=== PATIENT | female | born 1980 ===

== ENCOUNTER 2018-04-28 11:20 | Emergency (ER) | payer BC, OTHER ==
[2018-04-28] MEDS ORDERED: methylPREDNIS SUCC 125 MG/2ML IVP ONE (11:25)
[2018-04-28] MEDS ORDERED: FAMOTIDINE(*) 20MG/50ML PREMIX 50 ML IVPB ONE (11:25)
--- NOTE | 2018-04-28 11:25 | ER Report ---
History and Physical Time Seen By MD: 11:24 HPI/ROS CHIEF COMPLAINT: Drug reaction HISTORY OF PRESENT ILLNESS: Patient had an allergic reaction after eating sunflower seeds with her breakfast this morning. She states no prior allergy that she is aware of. She states she began feeling some swelling and itching to her eyes soon after eating breakfast but then soon after while exercising developed throat swelling difficulty breathing and wheezing. EMS was called she had taken a total of 75 mg of Benadryl orally prior to EMS arrival. She was given 0.3 mL of epinephrine's intramuscularly by EMS with rapid improvement in her symptoms. Patient had allergies to foods in the past but has not had a reaction in over 20 years. REVIEW OF SYSTEMS: Respiratory: Dyspnea Cardiovascular: No chest pain, no palpitations. Gastrointestinal: No vomiting, no abdominal pain. Musculoskeletal: No back pain. Allergies: Coded Allergies: codeine (Verified Allergy, Unknown, 04/28/18) Home Meds Active Scripts Epinephrine (EPINEPHRINE) 0.3 Mg/0.3 Ml Pen.injctr, 0.3 MG IM ONCE for severe allergic reaction, #1 PACK 1 Refill Prov:PEYMAN MCCLELLAN MD 04/28/18 Constitutional Vital Sign - Last 24 Hours 04/28/18 04/28/18 04/28/18 04/28/18 11:21 11:30 11:35 11:50 Temp 94.7 Pulse 92 85 83 Resp 22 37 24 B/P (MAP) 113/74 113/61 (78) Pulse Ox 100 84 97 O2 Delivery Room Air Intake and Output 04/28/18 04/28/18 04/29/18 15:00 23:00 07:00 Intake Total 50 ml Balance 50 ml Physical Exam General/Constitutional: Patient is awake, alert, nontoxic and in no acute respiratory distress. Head: Normocephalic and atraumatic Oropharyngeal: Mucous membranes are moist. There is no pharyngeal erythema or exudate. There are no palatal petechiae. Uvula is midline and symmetrical. Neck: Supple, no adenopathy. Cardiovascular: Heart is regular rate and rhythm without audible murmurs, rubs or gallops. Pulmonary: Lungs are clear to auscultation bilaterally. There are no wheezes, rales, or rhonchi. Chest rise is symmetrical Extremities: No gross deformities, No peripheral cyanosis. Able to move all 4 extremities. Neuro: Alert and oriented X3, Skin: No rashes, skin is warm dry and well perfused. Medical Decision Making ED Course/Re-evaluation ED Course 04/28/2018 11:45:55 am suspected allergic reaction to sunflower seeds. Patient took a total of 75 mg of oral Benadryl prehospital and received 0.3 mL's of 1- 1000 epinephrine intramuscularly by EMS with rapid improvement of her symptoms. Upon arrival to the emergency department respiratory symptoms have nearly abated. Plan at this time will be IV Pepcid along with IV Solu-Medrol and a period of observation in the emergency department. Re-evaluation 04/28/2018 12:16:57 pm patient remained symptom-free at this time will discharge home. Decision to Disposition Date: Apr 28, 2018 Decision to Disposition Time: 12:36 Depart Departure Latest Vital Signs Vital Signs Date Time Temp Pulse Resp B/P (MAP) Pulse Ox O2 Delivery O2 Flow Rate FiO2 04/28/18 11:50 83 24 97 04/28/18 11:30 113/61 (78) 04/28/18 11:21 94.7 Room Air Impression: Primary Impression: Allergic reaction Condition: Improved Disposition: HOME OR SELF-CARE New Scripts Epinephrine (EPINEPHRINE) 0.3 Mg/0.3 Ml Pen.injctr 0.3 MG IM ONCE for severe allergic reaction, #1 PACK 1 Refill Prov: PEYMAN MCCLELLAN MD 04/28/18 Patient Instructions: General Allergic Reaction (ED) Additional Instructions: Take Benadryl 25 mg every 6 hours for the next 24 hours. Avoid sunflower seeds from now on. Peak appear prescription for epinephrine auto injector and use as directed Problem Qualifiers Primary Impression: Allergic reaction Encounter type: initial encounter Qualified Codes: T78.40XA - Allergy, unspecified, initial encounter PEYMAN MCCLELLAN MD Apr 28, 2018 11:24
[2018-04-28] MEDS ORDERED: EPIN0.3P3 IM (11:58)
[2018-04-28 12:30] VITALS: BP 113/85
[2018-04-28] MEDS ORDERED: NS(*) 0.9% 1000 ML BAG 1,000 ML IV ONE (12:30)
== END 2018-04-28 12:43 | disposition home or self-care (01) ==
LOC: EDUNIT# 11:20 → ER 11:22
DX: T78.40XA Allergy, unspecified, initial encounter (principal)
CPT/HCPCS: 96365; 96375; 99283; J2930; J3490; J7030

== ENCOUNTER → 2018-04-28 | Outpatient (CLI) | payer BC ==
[~2018-04-28] MED LIST: EPIN0.3P3 IM
== END ==
LOC: AMB 11:01
PROVIDERS: ATTEND Nurse Practitioner
DX: R07.89 Other chest pain (principal); T78.40XA Allergy, unspecified, initial encounter; R06.82 Tachypnea, not elsewhere classified; I95.9 Hypotension, unspecified; M79.89 Other specified soft tissue disorders
CPT/HCPCS: A0425; A0427